=== PATIENT | female | born 1980 | race Hispanic/Latino ===

== ENCOUNTER 2017-01-08 15:09 | Emergency (ER) | payer MEDICAID ==
[2017-01-08 15:09] VITALS: BMI 31.8
[2017-01-08 15:17] VITALS: BP 140/86; PULSE 96; RESP 18; TEMP 99.5; O2SAT 99
--- NOTE | 2017-01-08 16:12 | ED PDOC ---
HPI: Dental Pain/Injury Time Seen by Provider: 01/08/17 15:19 Chief Complaint (Nursing): Dental Pain Chief Complaint (Provider): Dental pain History Per: Patient History/Exam Limitations: no limitations Onset/Duration Of Symptoms: Days (2) Current Symptoms Are (Timing): Still Present Additional Complaint(s): The patient is a 36yo female, presents to the ED for evaluation of atraumatic left upper dental pain, present for the past two days. Pt reports taking Motrin yesterday but reports no relief; contrary to triage note, pt denies taking any medications today. Of note, states she does take Tylenol #4 and Ultram for pain due to fibroids and arthritis as prescribed by Dr. Ny. Pt denies any fever, sore throat, numbness or tingling. Offers no additional medical complaints. Past Medical History Reviewed: Historical Data, Nursing Documentation, Vital Signs Vital Signs: Last Vital Signs Temp 99.5 F 01/08/17 15:15 Pulse 96 H 01/08/17 15:15 Resp 18 01/08/17 15:15 BP 140/86 01/08/17 15:15 Pulse Ox 99 01/08/17 15:15 - Medical History PMH: Anxiety, Arthritis, Asthma, Back Problems, Bipolar Disorder, Depression, Fibromyalgia, Migraine Denies: Chronic Kidney Disease - Surgical History Surgical History: - Family History Family History: States: No Known Family Hx - Home Medications Home Medications: Ambulatory Orders Medication Instructions Recorded Acetaminophen with Codeine 1 tab PO Q6 PRN 03/26/16 [Tylenol with Codeine No. 4 300 mg-60 mg] Clonazepam [Klonopin] 0.5 mg PO DAILY PRN 03/26/16 Gabapentin [Neurontin] 300 mg PO BID 03/26/16 Gabapentin [Neurontin] 600 mg PO HS 03/26/16 OLANZapine [ZyPREXA] 10 mg PO HS 03/26/16 SUMAtriptan [Imitrex] 50 mg PO DAILY 03/26/16 Topiramate [Topamax] 200 mg PO DAILY 03/26/16 Zolpidem [Ambien] 10 mg PO HS 03/26/16 Naproxen [Anaprox DS] 550 mg PO BID PRN #15 tab 01/08/17 - Allergies Allergies/Adverse Reactions: Allergies Allergy/AdvReac Type Severity Reaction Status Date / Time morphine Allergy RASH Verified 01/08/17 15:14 Review of Systems ROS Statement: Except As Marked, All Systems Reviewed And Found Negative Constitutional: Negative for: Fever ENT: Positive for: Other (left upper tooth ache). Negative for: Throat Pain, Throat Swelling Neurological: Negative for: Weakness, Numbness Physical Exam - Reviewed Nursing Documentation Reviewed: Yes Vital Signs Reviewed: Yes - Physical Exam Appears: Positive for: Well, Non-toxic, No Acute Distress Head Exam: Positive for: ATRAUMATIC, NORMAL INSPECTION, NORMOCEPHALIC Skin: Positive for: Normal Color, Warm, DRY Eye Exam: Positive for: Normal appearance, EOMI, PERRL ENT: Positive for: Normal ENT Inspection, Other (poor dentition, no gingival swelling noted.). Negative for: Tonsillar Exudate, Tonsillar Swelling Cardiovascular/Chest: Positive for: Regular Rate, Rhythm Respiratory: Negative for: Respiratory Distress Neurologic/Psych: Positive for: Alert, Oriented - ECG O2 Sat by Pulse Oximetry: 99 - Progress ED Course And Treament: Pt. searched in [facility] which indicates that pt. gets monthly Rx for Tylenol #4 and Ultram. Medical Decision Making Medical Decision Making: Time: 1521 Impression: Dental Pain Plan: -- Pt advised to follow up with dentist for further evaluation. -- Toradol 15 mg IM Scribe Attestation: Documented by Sarah Torres acting as a scribe for IDALMIS Way Provider Attestation: All medical record entries made by the Scribe were at my direction and personally dictated by me. I have reviewed the chart and agree that the record accurately reflects my personal performance of the history, physical exam, medical decision making, and the department course for this patient. I have also personally directed, reviewed, and agree with the discharge instructions and disposition. Disposition - Clinical Impression Clinical Impression: Toothache - Patient ED Disposition Is Patient to be Admitted: No - Disposition Referrals: [facility] [Outside] Disposition: Routine/Home Disposition Time: 17:30 Condition: STABLE Additional Instructions: Follow up with your dentist tomorrow for further evaluation. Prescriptions: Naproxen [Anaprox DS] 550 mg PO BID PRN #15 tab PRN Reason: pain Instructions: Toothache (ED) Print Language: SYRIAC
== END 2017-01-08 17:53 | disposition home or self-care (01) ==
LOC: H.ER 15:09
DX: K08.89 Other specified disorders of teeth and supporting structures (principal)

== ENCOUNTER 2017-01-13 14:23 | Emergency (ER) | payer MEDICAID ==
[2017-01-13 14:23] VITALS: BMI 31.8
[2017-01-13 14:43] VITALS: BP 107/64; PULSE 91; RESP 18; TEMP 98.4; O2SAT 100
--- NOTE | 2017-01-13 15:17 | ED PDOC ---
HPI: Back Time Seen by Provider: 01/13/17 14:49 Chief Complaint (Nursing): Back Pain Chief Complaint (Provider): Back pain History Per: Patient History/Exam Limitations: no limitations Onset/Duration Of Symptoms: Days (x2) Current Symptoms Are (Timing): Still Present Additional Complaint(s): Pj Mendez is a 36 year old female with previous medical history of sciatica , herniated disc, and titanium hip, who presents to the emergency department with a complaint of diffuse back pain associated with nausea, vomiting, chills, and radiation to her lower extremities ongoing for 2 days. Denies any fever, dysuria, hematuria, or bloody bowel movements. She reported taking Tramadol and a topical cream for pain but feels no improvements. PMD: Zaheer Aiken MD Past Medical History Reviewed: Historical Data, Nursing Documentation, Vital Signs Vital Signs: Last Vital Signs Temp 98.4 F 01/13/17 14:36 Pulse 91 H 01/13/17 14:36 Resp 18 01/13/17 14:36 BP 107/64 01/13/17 14:36 Pulse Ox 100 01/13/17 14:36 - Medical History PMH: Anxiety, Arthritis, Asthma, Back Problems, Bipolar Disorder, Depression, Fibromyalgia, Migraine Denies: Chronic Kidney Disease - Surgical History Surgical History: - Family History Family History: States: Unknown Family Hx - Home Medications Home Medications: Ambulatory Orders Medication Instructions Recorded Acetaminophen with Codeine 1 tab PO Q6 PRN 03/26/16 [Tylenol with Codeine No. 4 300 mg-60 mg] Clonazepam [Klonopin] 0.5 mg PO DAILY PRN 03/26/16 Gabapentin [Neurontin] 300 mg PO BID 03/26/16 Gabapentin [Neurontin] 600 mg PO HS 03/26/16 OLANZapine [ZyPREXA] 10 mg PO HS 03/26/16 SUMAtriptan [Imitrex] 50 mg PO DAILY 03/26/16 Topiramate [Topamax] 200 mg PO DAILY 03/26/16 Zolpidem [Ambien] 10 mg PO HS 03/26/16 Naproxen [Anaprox DS] 550 mg PO BID PRN #15 tab 01/08/17 Ketorolac Tromethamine [Toradol] 10 mg PO TID #20 cap 01/13/17 Nitrofurantoin Macrocrystals 100 mg PO BID #14 cap 01/13/17 [Macrobid] Non-Formulary 1 ea XX DAILY #1 ea 01/13/17 Tamsulosin HCl [Flomax] 0.4 mg PO DAILY #12 cap.er.24h 01/13/17 - Allergies Allergies/Adverse Reactions: Allergies Allergy/AdvReac Type Severity Reaction Status Date / Time morphine Allergy RASH Verified 01/08/17 15:14 Review of Systems ROS Statement: Except As Marked, All Systems Reviewed And Found Negative Constitutional: Positive for: Chills. Negative for: Fever Gastrointestinal: Positive for: Nausea, Vomiting Genitourinary Female: Negative for: Dysuria, Hematuria, Other (bloody bowel movements) Musculoskeletal: Positive for: Back Pain (diffused) Physical Exam - Reviewed Nursing Documentation Reviewed: Yes Vital Signs Reviewed: Yes - Physical Exam Appears: Positive for: Well, Non-toxic, Uncomfortable Head Exam: Positive for: ATRAUMATIC, NORMAL INSPECTION, NORMOCEPHALIC Cardiovascular/Chest: Positive for: Regular Rate, Rhythm Respiratory: Positive for: Normal Breath Sounds Gastrointestinal/Abdominal: Positive for: Tenderness (suprapubic) Back: Positive for: L CVA Tenderness, R CVA Tenderness, Vertebral Tenderness ( midline). Negative for: Normal Inspection Extremity: Positive for: Other (left straight leg raise). Negative for: Pedal Edema Neurologic/Psych: Positive for: Alert, county agent II-XII, Oriented - ECG O2 Sat by Pulse Oximetry: 100 (RA) Pulse Ox Interpretation: Normal Medical Decision Making Medical Decision Making: Initial Impression: Back pain, history of sciatica. R/O infection Initial Plan: * Urine dipstick * Urine * Toradol 30mg IM CT scan: IMPRESSION: 1. Small nonobstructing stones in the right kidney, the largest in the right lower pole measures 3 mm. No hydronephrosis. 2. 2.8 cm simple cyst in the right ovary. Pt declined IV fluids of NS. Pt will need to f.u with pmd will be d/c on flomax, torodol PO (pt sees pain mngt for chronic back pain) and abx(macrobid) stable VS pt well appearing. Scribe Attestation: Documented by Mandi Stewart, acting as a scribe for Kay Deluna PA-C. Provider Scribe Attestation: All medical record entries made by the Scribe were at my direction and personally dictated by me. I have reviewed the chart and agree that the record accurately reflects my personal performance of the history, physical exam, medical decision making, and the department course for this patient. I have also personally directed, reviewed, and agree with the discharge instructions and disposition. Disposition - Clinical Impression Clinical Impression: Renal stone - Patient ED Disposition Is Patient to be Admitted: No Counseled Patient/Family Regarding: Studies Performed, Diagnosis, Need For Followup, Rx Given - Disposition Disposition: Routine/Home Disposition Time: 16:55 Condition: STABLE Prescriptions: Ketorolac Tromethamine [Toradol] 10 mg PO TID #20 cap Nitrofurantoin Macrocrystals [Macrobid] 100 mg PO BID #14 cap Non-Formulary 1 ea XX DAILY #1 ea Tamsulosin HCl [Flomax] 0.4 mg PO DAILY #12 cap.er.24h Instructions: Kidney Stones (ED), Renal Colic (ED), How to Strain Your Urine ( ED)
--- NOTE | 2017-01-13 16:47 | CT ---
PROCEDURE: CT Abdomen and Pelvis without intravenous contrast HISTORY: CVA tenderness b/l COMPARISON: 03/26/2016 TECHNIQUE: CT scan of the abdomen and pelvis was performed without administration of oral contrast intravenous contrast was not administered. Coronal and sagittal reformatted images were obtained. Radiation dose: Total exam DLP = 815.53 mGy-cm. This CT exam was performed using one or more of the following dose reduction techniques: Automated exposure control, adjustment of the mA and/or kV according to patient size, and/or use of iterative reconstruction technique. FINDINGS: LOWER THORAX: The lung bases are clear. . LIVER: The liver is normal in size. No gross lesion or ductal dilatation. GALLBLADDER AND BILE DUCTS: The gallbladder is well distended without calcified gallstones. PANCREAS: There is redemonstration of mild fatty atrophy of the pancreas. No gross lesion or ductal dilatation. SPLEEN: There is borderline splenomegaly. ADRENALS: Both adrenal glands are normal in size without discrete nodule. KIDNEYS AND URETERS: Both kidneys are normal in size. There are small nonobstructing stones in the right kidney, the largest in the lower pole measures 3 mm. No hydronephrosis. No left nephrolithiasis. The ureters are not dilated. VASCULATURE: No aortic aneurysm. BOWEL: The small bowel loops are normal in caliber. The colon is unremarkable. APPENDIX: Normal appendix. PERITONEUM: No free fluid. No free air. LYMPH NODES: No enlarged lymph nodes. BLADDER: Unremarkable. REPRODUCTIVE: The uterus is normal in size. There is a 2.8 cm simple cyst in the right ovary. BONES: No acute fracture. Within normal limits for the patient's age. OTHER FINDINGS: None. IMPRESSION: 1. Small nonobstructing stones in the right kidney, the largest in the right lower pole measures 3 mm. No hydronephrosis. 2. 2.8 cm simple cyst in the right ovary.
== END 2017-01-13 17:10 | disposition home or self-care (01) ==
LOC: H.ER 14:23
DX: N20.0 Calculus of kidney (principal); F31.9 Bipolar disorder, unspecified; F41.9 Anxiety disorder, unspecified; M79.7 Fibromyalgia

== ENCOUNTER 2017-02-26 13:12 | Emergency (ER) | payer MEDICAID ==
[2017-02-26 13:12] VITALS: BMI 31.8
[2017-02-26 13:24] VITALS: RESP 18; TEMP 98.8; O2SAT 100
[2017-02-26] MEDS ORDERED: Oxycodone/Acetaminophen 5/325 mg Tab PO STA (13:42)
--- NOTE | 2017-02-26 13:51 | ED PDOC ---
HPI: Dental Pain/Injury Time Seen by Provider: 02/26/17 13:14 Chief Complaint (Nursing): Dental Pain Chief Complaint (Provider): Dental Pain History Per: Patient History/Exam Limitations: no limitations Onset/Duration Of Symptoms: Days (x1) Current Symptoms Are (Timing): Still Present Additional Complaint(s): Pj Kowalski is a 36 year old female who presents to the emergency department with a complaint of right upper molar pain ongoing for 24 hours. Denied any fever, chills, facial swelling or redness. Patient stated she took Tylenol last at 0600 this morning with no improvement of symptoms and does not follow up with a dentist regularly. PMD: Rafael Aiken MD Past Medical History Reviewed: Historical Data, Nursing Documentation, Vital Signs Vital Signs: Last Vital Signs Temp 98.8 F 02/26/17 13:22 Pulse 109 H 02/26/17 13:22 Resp 18 02/26/17 13:22 BP 145/93 H 02/26/17 13:22 Pulse Ox 100 02/26/17 13:22 - Medical History PMH: Anxiety, Arthritis, Asthma, Back Problems, Bipolar Disorder, Depression, Fibromyalgia, Migraine Denies: Chronic Kidney Disease - Surgical History Surgical History: - Family History Family History: States: Unknown Family Hx - Social History Current smoker - smoking cessation education provided: No Alcohol: None Drugs: Denies - Home Medications Home Medications: Ambulatory Orders Medication Instructions Recorded Acetaminophen with Codeine 1 tab PO Q6 PRN 03/26/16 [Tylenol with Codeine No. 4 300 mg-60 mg] Clonazepam [Klonopin] 0.5 mg PO DAILY PRN 03/26/16 Gabapentin [Neurontin] 300 mg PO BID 03/26/16 Gabapentin [Neurontin] 600 mg PO HS 03/26/16 OLANZapine [ZyPREXA] 10 mg PO HS 03/26/16 SUMAtriptan [Imitrex] 50 mg PO DAILY 03/26/16 Topiramate [Topamax] 200 mg PO DAILY 03/26/16 Zolpidem [Ambien] 10 mg PO HS 03/26/16 Naproxen [Anaprox DS] 550 mg PO BID PRN #15 tab 01/08/17 Ketorolac Tromethamine [Toradol] 10 mg PO TID #20 cap 01/13/17 Nitrofurantoin Macrocrystals 100 mg PO BID #14 cap 01/13/17 [Macrobid] Non-Formulary 1 ea XX DAILY #1 ea 01/13/17 Tamsulosin HCl [Flomax] 0.4 mg PO DAILY #12 cap.er.24h 01/13/17 traMADol [Ultram] 50 mg PO TID #15 tab 02/26/17 - Allergies Allergies/Adverse Reactions: Allergies Allergy/AdvReac Type Severity Reaction Status Date / Time acetaminophen Allergy RASH Verified 02/26/17 13:24 [From Tylenol-Codeine #3] codeine Allergy RASH Verified 02/26/17 13:24 [From Tylenol-Codeine #3] morphine Allergy RASH Verified 01/08/17 15:14 Review of Systems ROS Statement: Except As Marked, All Systems Reviewed And Found Negative Constitutional: Negative for: Fever, Chills ENT: Positive for: Mouth Pain (right upper molar). Negative for: Other (facial swelling or erythema) Physical Exam - Reviewed Nursing Documentation Reviewed: Yes Vital Signs Reviewed: Yes - Physical Exam Appears: Positive for: Well (with poor dentition; dental caries noted), Non- toxic, No Acute Distress Head Exam: Positive for: ATRAUMATIC, NORMAL INSPECTION, NORMOCEPHALIC Skin: Positive for: Normal Color ENT: Negative for: Other (edema/erythema to gum line) Neurologic/Psych: Positive for: Alert, Oriented - ECG O2 Sat by Pulse Oximetry: 100 Medical Decision Making Medical Decision Making: Medicated with Motrin PO, no relief on re-eval. Tramadol administered with good relief obtained provided with info for dental clinics Disposition - Clinical Impression Clinical Impression: Toothache - Patient ED Disposition Is Patient to be Admitted: No - Disposition Disposition: Routine/Home Disposition Time: 15:18 Condition: STABLE Additional Instructions: Follow up with dental clinic provided Prescriptions: traMADol [Ultram] 50 mg PO TID #15 tab Instructions: Toothache (ED) Forms: [employer] (Welsh)
[2017-02-26 15:25] VITALS: BP 137/79; PULSE 82
== END 2017-02-26 15:24 | disposition home or self-care (01) ==
LOC: H.ER 13:12
DX: K08.89 Other specified disorders of teeth and supporting structures (principal); F31.9 Bipolar disorder, unspecified; F41.9 Anxiety disorder, unspecified; J45.909 Unspecified asthma, uncomplicated; M79.7 Fibromyalgia

== ENCOUNTER 2017-03-11 19:33 | Emergency (ER) | payer OTHER, MEDICAID ==
[2017-03-11 19:33] VITALS: BMI 31.8
[2017-03-11 19:46] VITALS: BP 116/61; PULSE 84; RESP 16; TEMP 98.7; O2SAT 98
--- NOTE | 2017-03-11 20:04 | ED PDOC ---
Lower Extremity Pain/Injury Time Seen by Provider: 03/11/17 19:49 Chief Complaint (Nursing): Lower Extremity Problem/Injury Chief Complaint (Provider): Right Knee Injury History Per: Patient History/Exam Limitations: no limitations Onset/Duration Of Symptoms: Mins Current Symptoms Are (Timing): Still Present Additional Complaint(s): Pj Truong is a 36 year old female with a history of arthritis and a pre- existing right knee injury that presents to the ED with a chief complaint of a right knee injury she sustained after slipping and hitting her right knee into a cart while at work earlier today. Patient now reports pains with flexion at the knee and is unable to put weight on the knee. She denies any numbness, tingling, or radiation of pain. Past Medical History Reviewed: Historical Data, Nursing Documentation, Vital Signs Vital Signs: Last Vital Signs Temp 98.7 F 03/11/17 19:45 Pulse 84 03/11/17 19:45 Resp 16 03/11/17 19:45 BP 116/61 03/11/17 19:45 Pulse Ox 98 03/11/17 19:45 - Medical History PMH: Anxiety, Arthritis, Asthma, Back Problems, Bipolar Disorder, Depression, Fibromyalgia, Migraine Denies: Chronic Kidney Disease - Surgical History Surgical History: - Family History Family History: States: Unknown Family Hx - Home Medications Home Medications: Ambulatory Orders Medication Instructions Recorded Acetaminophen with Codeine 1 tab PO Q6 PRN 03/26/16 [Tylenol with Codeine No. 4 300 mg-60 mg] Clonazepam [Klonopin] 0.5 mg PO DAILY PRN 03/26/16 Gabapentin [Neurontin] 300 mg PO BID 03/26/16 Gabapentin [Neurontin] 600 mg PO HS 03/26/16 OLANZapine [ZyPREXA] 10 mg PO HS 03/26/16 SUMAtriptan [Imitrex] 50 mg PO DAILY 03/26/16 Topiramate [Topamax] 200 mg PO DAILY 03/26/16 Zolpidem [Ambien] 10 mg PO HS 03/26/16 Naproxen [Anaprox DS] 550 mg PO BID PRN #15 tab 01/08/17 Ketorolac Tromethamine [Toradol] 10 mg PO TID #20 cap 01/13/17 Nitrofurantoin Macrocrystals 100 mg PO BID #14 cap 01/13/17 [Macrobid] Non-Formulary 1 ea XX DAILY #1 ea 01/13/17 Tamsulosin HCl [Flomax] 0.4 mg PO DAILY #12 cap.er.24h 01/13/17 traMADol [Ultram] 50 mg PO TID #15 tab 02/26/17 - Allergies Allergies/Adverse Reactions: Allergies Allergy/AdvReac Type Severity Reaction Status Date / Time acetaminophen Allergy RASH Verified 02/26/17 13:24 [From Tylenol-Codeine #3] codeine Allergy RASH Verified 02/26/17 13:24 [From Tylenol-Codeine #3] morphine Allergy RASH Verified 01/08/17 15:14 Review of Systems Musculoskeletal: Positive for: Leg Pain (right knee pain) Physical Exam - Reviewed Nursing Documentation Reviewed: Yes Vital Signs Reviewed: Yes - Physical Exam Appears: Positive for: Non-toxic, No Acute Distress Head Exam: Positive for: ATRAUMATIC, NORMOCEPHALIC Skin: Positive for: Normal Color, Warm Eye Exam: Positive for: Normal appearance, EOMI, PERRL Pulses-Dorsalis Pedis (L): 2+ Pulses-Dorsalis Pedis (R): 2+ Pulses-Post. Tibialis (L): 2+ Pulses-Post. Tibialis (R): 2+ Extremity: Positive for: Tenderness (TTP anterior right knee), Swelling (Mild swelling posterior right knee), Other (Skin intact on right knee.). Negative for: Normal ROM (ROM right knee is difficult), Calf Tenderness Neurologic/Psych: Positive for: Alert, Oriented. Negative for: Motor/Sensory Deficits - ECG O2 Sat by Pulse Oximetry: 98 (RA) Pulse Ox Interpretation: Normal Medical Decision Making Medical Decision Making: Impression: Right Knee Injury Plan: * X-Ray Right Knee-knee normal appearing. will place in a knee immobilizer advise to f/u with orthopedics for eval. * motrin for pain control elevate and ice. * Reevaluation Scribe Attestation: Documented by Elyssa Bustamante, acting as a scribe for Kay Deluna PA-C. Provider Scribe Attestation: All medical record entries made by the Scribe were at my direction and personally dictated by me. I have reviewed the chart and agree that the record accurately reflects my personal performance of the history, physical exam, medical decision making, and the department course for this patient. I have also personally directed, reviewed, and agree with the discharge instructions and disposition. Disposition - Clinical Impression Clinical Impression: Knee injury - Patient ED Disposition Is Patient to be Admitted: No Counseled Patient/Family Regarding: Studies Performed, Diagnosis, Need For Followup - Disposition Referrals: [facility] [place] [Outside] Disposition: Routine/Home Disposition Time: 20:14 Condition: STABLE Instructions: Knee Immobilizer (ED), Swollen Knee Joint (ED) Forms: [facility] ED School/Work Excuse
--- NOTE | 2017-03-12 09:26 | RAD ---
PROCEDURE: Right Knee Radiographs. HISTORY: knee injury COMPARISON: None. FINDINGS: BONES: Normal. No fracture. JOINTS: Normal. No osteoarthritis. JOINT EFFUSION: None. OTHER FINDINGS: None. IMPRESSION: Unremarkable radiographs of the right knee.
== END 2017-03-11 21:05 | disposition home or self-care (01) ==
LOC: H.ER 19:33
DX: S89.91XA Unspecified injury of right lower leg, initial encounter (principal); W22.8XXA Striking against or struck by other objects, initial encounter; Y99.0 Civilian activity done for income or pay

== ENCOUNTER 2017-05-01 12:35 | Emergency (ER) | payer MEDICAID, OTHER ==
[2017-05-01 12:35] VITALS: BMI 31.8
[2017-05-01 12:39] VITALS: BP 135/80; TEMP 98.2; O2SAT 100
[2017-05-01] MEDS ORDERED: Albuterol-Ipratrop 3 mg / 0.5 (3 ml) UD INH STA (12:56)
--- NOTE | 2017-05-01 13:00 | ED PDOC ---
HPI: General Adult Time Seen by Provider: 05/01/17 12:45 Chief Complaint (Nursing): Shortness Of Breath Chief Complaint (Provider): Chest Tightness History Per: Patient History/Exam Limitations: no limitations Onset/Duration Of Symptoms: Days (x 2), Worse Since (earlier today) Current Symptoms Are (Timing): Still Present Additional Complaint(s): Pj is a 36 year old female with a past medical history of asthma, anxiety, depression, who presents to the Emergency Department complaining of chest tightness and difficulty breathing. Patient states she had an asthma attack yesterday at work, with worsening symptoms this morning. Patient states she used her inhaler as well as nebulizer at home, with some relief of her symptoms. Of note, patient states she uses her inhaler once a week on average. She denies any other medical complaints. PMD: Dr. Rafael Aiken Past Medical History Reviewed: Historical Data, Nursing Documentation, Vital Signs Vital Signs: Last Vital Signs Temp 98.2 F 05/01/17 12:37 Pulse 83 05/01/17 13:22 Resp 18 05/01/17 13:45 BP 135/80 05/01/17 12:37 Pulse Ox 100 05/01/17 13:22 - Medical History PMH: Anxiety, Arthritis, Asthma, Back Problems, Bipolar Disorder, Depression, Fibromyalgia, Migraine Denies: Diabetes, HTN, Hyperthyroidism, Hypothyroidism, Chronic Kidney Disease - Surgical History Surgical History: Other surgeries: left hip repalcement - Family History Family History: States: No Known Family Hx - Living Arrangements Living Arrangements: With Family - Social History Current smoker - smoking cessation education provided: No Ex-Smoker (has not smoked in the last 12 months): No Alcohol: None Drugs: Denies - Home Medications Home Medications: Ambulatory Orders Medication Instructions Recorded Acetaminophen with Codeine 1 tab PO Q6 PRN 03/26/16 [Tylenol with Codeine No. 4 300 mg-60 mg] Clonazepam [Klonopin] 0.5 mg PO DAILY PRN 03/26/16 Gabapentin [Neurontin] 300 mg PO BID 03/26/16 Gabapentin [Neurontin] 600 mg PO HS 03/26/16 OLANZapine [ZyPREXA] 10 mg PO HS 03/26/16 SUMAtriptan [Imitrex] 50 mg PO DAILY 03/26/16 Topiramate [Topamax] 200 mg PO DAILY 03/26/16 Zolpidem [Ambien] 10 mg PO HS 03/26/16 Naproxen [Anaprox DS] 550 mg PO BID PRN #15 tab 01/08/17 Ketorolac Tromethamine [Toradol] 10 mg PO TID #20 cap 01/13/17 Nitrofurantoin Macrocrystals 100 mg PO BID #14 cap 01/13/17 [Macrobid] Non-Formulary 1 ea XX DAILY #1 ea 01/13/17 Tamsulosin HCl [Flomax] 0.4 mg PO DAILY #12 cap.er.24h 01/13/17 traMADol [Ultram] 50 mg PO TID #15 tab 02/26/17 Albuterol 0.083% [Albuterol 0.083% 2.5 mg IH QID PRN #20 05/01/17 Inhal Soheila (2.5 mg/3 ml) UD] Albuterol HFA [Ventolin HFA 90 1 puff IH BID PRN #1 unit 05/01/17 mcg/actuation (8 g)] predniSONE [predniSONE Tab] 20 mg PO DAILY #12 tab 05/01/17 - Allergies Allergies/Adverse Reactions: Allergies Allergy/AdvReac Type Severity Reaction Status Date / Time acetaminophen Allergy RASH Verified 05/01/17 12:37 [From Tylenol-Codeine #3] codeine Allergy RASH Verified 05/01/17 12:37 [From Tylenol-Codeine #3] morphine Allergy RASH Verified 05/01/17 12:37 Review of Systems ROS Statement: Except As Marked, All Systems Reviewed And Found Negative Cardiovascular: Positive for: Other ("chest tightness") Respiratory: Positive for: Shortness of Breath (difficulty breathing) Physical Exam - Reviewed Nursing Documentation Reviewed: Yes Vital Signs Reviewed: Yes - Physical Exam Appears: Positive for: Well, Non-toxic, No Acute Distress Skin: Positive for: Normal Color Eye Exam: Positive for: Normal appearance ENT: Positive for: Normal ENT Inspection Neck: Positive for: Normal, Supple Cardiovascular/Chest: Positive for: Regular Rate, Rhythm. Negative for: Murmur Respiratory: Positive for: Normal Breath Sounds. Negative for: Wheezing, Respiratory Distress Neurologic/Psych: Positive for: Alert, Oriented - ECG ECG: Positive for: Interpreted By Me, Viewed By Me ECG Rhythm: Positive for: Normal QRS, Normal ST Segment, Sinus Rhythm Rate: 83 O2 Sat by Pulse Oximetry: 100 (RA) Pulse Ox Interpretation: Normal Medical Decision Making Medical Decision Making: Time: 12:56 Impression: 36yo female with shortness of breath and chest tightness Initial Plan: -- Duoneb 3 mg/05.mg (3ml) UD -- Solu-medrol 125 mg IM -- Xanax 0.25 mg PO --Peak Flow Pre/Post TX Pt reports feeling better on re-evaluation. No wheezing Scribe Attestation: Documented by David Gross, acting as a scribe for Kaelyn Salcedo PA-C Provider Scribe Attestation: All medical record entries made by the Scribe were at my direction and personally dictated by me. I have reviewed the chart and agree that the record accurately reflects my personal performance of the history, physical exam, medical decision making, and the department course for this patient. I have also personally directed, reviewed, and agree with the discharge instructions and disposition. Disposition - Clinical Impression Clinical Impression: Asthma exacerbation - Patient ED Disposition Is Patient to be Admitted: No Counseled Patient/Family Regarding: Diagnosis, Need For Followup, Rx Given - Disposition Referrals: [facility] [Outside] Disposition: Routine/Home Disposition Time: 13:49 Condition: GOOD Prescriptions: Albuterol 0.083% [Albuterol 0.083% Inhal Soheila (2.5 mg/3 ml) UD] 2.5 mg IH QID PRN #20 PRN Reason: Shortness Of Breath Albuterol HFA [Ventolin HFA 90 mcg/actuation (8 g)] 1 puff IH BID PRN #1 unit PRN Reason: Wheezing predniSONE [predniSONE Tab] 20 mg PO DAILY #12 tab Instructions: Asthma (ED) Forms: [facility] (S[place]i), [facility] ED School/Work Excuse
[2017-05-01] MEDS ORDERED: Albuterol-Ipratrop 3 mg / 0.5 (3 ml) UD ONE (13:17)
[2017-05-01 13:22] VITALS: PULSE 83
[2017-05-01 13:46] VITALS: RESP 18
== END 2017-05-01 15:21 | disposition home or self-care (01) ==
LOC: H.ER 12:35
DX: J45.901 Unspecified asthma with (acute) exacerbation (principal); F31.9 Bipolar disorder, unspecified; F41.9 Anxiety disorder, unspecified; M79.7 Fibromyalgia
CPT/HCPCS: 81025; 94640; 96372; 99282; J2930

== ENCOUNTER 2017-08-23 09:24 | Emergency (ER) | payer MEDICAID ==
[2017-08-23 09:31] VITALS: BMI 31.3
[2017-08-23 09:34] VITALS: BP 107/74; PULSE 90; RESP 20; TEMP 98.6; O2SAT 100
[2017-08-23] MEDS ORDERED: Sodium Chloride 0.9% 1,000 ML IV STA (10:10)
--- NOTE | 2017-08-23 10:13 | ED PDOC ---
HPI: General Adult Time Seen by Provider: 08/23/17 09:30 Chief Complaint (Nursing): Back Pain Chief Complaint (Provider): Vomiting, Flank Pain History Per: Patient History/Exam Limitations: no limitations Onset/Duration Of Symptoms: Hrs (x 6) Current Symptoms Are (Timing): Still Present Additional Complaint(s): Pj is a 37 y/o female who presents to the ED complaining of vomiting that started at 4:30am with associated flank pain and chills. Patient denies dysuria but states she has an increased frequency and urgency to urinate. Last episode of vomiting was at 8:30am. PMD: Rafael Aiken Past Medical History Reviewed: Historical Data, Nursing Documentation, Vital Signs Vital Signs: Last Vital Signs Temp 98.6 F 08/23/17 09:31 Pulse 90 08/23/17 09:31 Resp 20 08/23/17 09:31 BP 107/74 08/23/17 09:31 Pulse Ox 100 08/23/17 13:43 - Medical History PMH: Anxiety, Arthritis, Asthma, Back Problems, Bipolar Disorder, Depression, Fibromyalgia, Hyperlipidemia, Migraine Denies: Diabetes, HTN, Hyperthyroidism, Hypothyroidism, Chronic Kidney Disease - Surgical History Surgical History: - Family History Family History: States: Unknown Family Hx - Social History Current smoker - smoking cessation education provided: No Alcohol: None Drugs: Denies - Home Medications Home Medications: Ambulatory Orders Medication Instructions Recorded Acetaminophen with Codeine 1 tab PO Q6 PRN 03/26/16 [Tylenol with Codeine No. 4 300 mg-60 mg] Clonazepam [Klonopin] 0.5 mg PO DAILY PRN 03/26/16 Gabapentin [Neurontin] 300 mg PO BID 03/26/16 Gabapentin [Neurontin] 600 mg PO HS 03/26/16 OLANZapine [ZyPREXA] 10 mg PO HS 03/26/16 SUMAtriptan [Imitrex] 50 mg PO DAILY 03/26/16 Topiramate [Topamax] 200 mg PO DAILY 03/26/16 Zolpidem [Ambien] 10 mg PO HS 03/26/16 Naproxen [Anaprox DS] 550 mg PO BID PRN #15 tab 01/08/17 Ketorolac Tromethamine [Toradol] 10 mg PO TID #20 cap 01/13/17 Nitrofurantoin Macrocrystals 100 mg PO BID #14 cap 01/13/17 [Macrobid] Non-Formulary 1 ea XX DAILY #1 ea 01/13/17 Tamsulosin HCl [Flomax] 0.4 mg PO DAILY #12 cap.er.24h 01/13/17 traMADol [Ultram] 50 mg PO TID #15 tab 02/26/17 Albuterol 0.083% [Albuterol 0.083% 2.5 mg IH QID PRN #20 05/01/17 Inhal Soheila (2.5 mg/3 ml) UD] Albuterol HFA [Ventolin HFA 90 1 puff IH BID PRN #1 unit 05/01/17 mcg/actuation (8 g)] predniSONE [predniSONE Tab] 20 mg PO DAILY #12 tab 05/01/17 Nitrofurantoin Macrocrystals 100 mg PO BID #14 cap 08/23/17 [Macrobid] Tamsulosin [Flomax] 0.4 mg PO DAILY #14 cap 08/23/17 - Allergies Allergies/Adverse Reactions: Allergies Allergy/AdvReac Type Severity Reaction Status Date / Time acetaminophen Allergy RASH Verified 08/23/17 09:50 [From Tylenol-Codeine #3] codeine Allergy RASH Verified 08/23/17 09:50 [From Tylenol-Codeine #3] morphine Allergy RASH Verified 08/23/17 09:50 Review of Systems ROS Statement: Except As Marked, All Systems Reviewed And Found Negative Constitutional: Positive for: Chills Gastrointestinal: Positive for: Vomiting Genitourinary Female: Positive for: Frequency. Negative for: Dysuria Musculoskeletal: Positive for: Back Pain (flank) Physical Exam - Reviewed Nursing Documentation Reviewed: Yes Vital Signs Reviewed: Yes - Physical Exam Appears: Positive for: Well, No Acute Distress Head Exam: Positive for: ATRAUMATIC, NORMOCEPHALIC Skin: Positive for: Normal Color, Warm, Dry Eye Exam: Positive for: EOMI, Normal appearance, PERRL ENT: Positive for: Normal ENT Inspection Neck: Positive for: Normal, Painless ROM, Supple Cardiovascular/Chest: Positive for: Regular Rate, Rhythm. Negative for: Murmur Respiratory: Positive for: Normal Breath Sounds. Negative for: Respiratory Distress Gastrointestinal/Abdominal: Positive for: Normal Exam, Soft. Negative for: Tenderness Back: Positive for: Normal Inspection Extremity: Positive for: Normal ROM. Negative for: Pedal Edema, Deformity Neurologic/Psych: Positive for: Alert, Oriented. Negative for: Motor/Sensory Deficits - Laboratory Results Result Diagrams: 08/23/17 10:30 08/23/17 10:30 - ECG O2 Sat by Pulse Oximetry: 100 (RA) Pulse Ox Interpretation: Normal Medical Decision Making Medical Decision Making: Time: 10:05 Initial Impression:flank pain Rule out kidney stone, UTI Initial Plan: --Urine Dip --Urine --CT Abdomen & Pelvis w/o Contrast --CMP --CBC --Toradol --Zofran --Urine C&S --Urinalysis Urine : Negative CT Abdomen & Pelvis w/o Contrast: The 2 mostly midpole right renal nonobstructing calculi (largest measuring 3 mm ) are similar appearing. No interval left-sided urolithiasis. No gross bladder calculi. No hydronephrosis appreciated. No similar right ovarian 2.8 cm cyst. A smaller right ovarian cysts is now noted. Findings are compatible with physiologic changes. Time: 12:10 upon reeval of pt, she is sleeping comfortably in no distress. --Patient is aware of results and was instructed to follow up with outpatient urology. She is stable for discharge home. pt given referal for follow up. pt says she follows up with pain managment for narcotics. Scribe Attestation: Documented by Ethan Carranza, acting as a scribe for Claire Shah MD Provider Scribe Attestation: All medical record entries made by the Scribe were at my direction and personally dictated by me. I have reviewed the chart and agree that the record accurately reflects my personal performance of the history, physical exam, medical decision making, and the department course for this patient. I have also personally directed, reviewed, and agree with the discharge instructions and disposition. Disposition - Clinical Impression Clinical Impression: Back strain, Kidney stone - Patient ED Disposition Is Patient to be Admitted: No Counseled Patient/Family Regarding: Studies Performed, Diagnosis, Need For Followup - Disposition Referrals: [facility] [Outside] Kulwinder Duncan MD [Medical Doctor] - Disposition: Routine/Home Disposition Time: 10:30 Condition: IMPROVED Additional Instructions: follow up with urologist within one week return to the ED with any worsening or concerning symptoms Prescriptions: Nitrofurantoin Macrocrystals [Macrobid] 100 mg PO BID #14 cap Tamsulosin [Flomax] 0.4 mg PO DAILY #14 cap Instructions: Kidney Stones (DC) Forms: [facility] (E[place]ian), [facility] ED School/Work Excuse
[2017-08-23 10:52] LABS: SQUAMOUS EPITHIAL 6 /hpf (0-5); URINE BILIRUBIN SMALL (NEGATIVE); URINE BLOOD NEGATIVE (NEGATIVE); URINE CLARITY SLIGHTY-CLOUDY (Clear); URINE COLOR YELLOW (YELLOW); URINE GLUCOSE (UA) NEG (Normal); URINE LEUKOCYTE ESTERASE NEG Leu/uL (Negative); URINE NITRATE NEGATIVE (NEGATIVE); URINE PROTEIN 30 mg/dL (NEGATIVE); URINE UROBILINOGEN 0.2-1.0 mg/dL (0.2-1.0)
[2017-08-23 10:54] LABS: CALCIUM 9.3 mg/dL (8.4-10.2); GFR AFRICAN-AMERICAN > 60; GFR NON-AFRICAN AMERICAN > 60
[2017-08-23 10:55] LABS: BASO % 0.4 % (0.0-2.0); EOS % 0.3 % (0.0-4.0); HEMOGLOBIN 13.8 g/dL (12.0-16.0); LYMPH # 0.9 K/uL (1.0-4.3); LYMPH % 11.6 % (20.0-40.0); MEAN CELL VOLUME 88.3 fl (81.0-99.0); MEAN PLATELET VOLUME 7.6 fl (7.2-11.7); MONO # 0.2 K/uL (0.0-0.8); MONO % 3.2 % (0.0-10.0); NEUT # 6.5 K/uL (1.8-7.0); NEUT % 84.5 % (50.0-75.0); RBC 4.59 Mil/uL (3.80-5.20); RED CELL DISTRIBUTION WIDTH 12.8 % (11.5-14.5); WHITE BLOOD COUNT 7.6 K/uL (4.8-10.8)
[2017-08-23 10:56] LABS: ALB/GLOB RATIO 1.2 (1.0-2.1); ALBUMIN 4.3 g/dL (3.5-5.0); ALT/SGPT 18 U/L (9-52); AST/SGOT 32 U/L (14-36); BLOOD UREA NITROGEN 9 mg/dl (7-17)
--- NOTE | 2017-08-23 11:38 | CT ---
PROCEDURE: CT Abdomen and Pelvis without intravenous contrast HISTORY: abd pain COMPARISON: 07/16/2016 TECHNIQUE: Without contrast. Contrast Dose: None Radiation dose: Total exam DLP = 876 mGy-cm. This CT exam was performed using one or more of the following dose reduction techniques: Automated exposure control, adjustment of the mA and/or kV according to patient size, and/or use of iterative reconstruction technique. FINDINGS: LOWER THORAX: Unremarkable. LIVER: Unremarkable. No gross lesion or ductal dilatation. GALLBLADDER AND BILE DUCTS: Unremarkable. PANCREAS: Unremarkable. No gross lesion or ductal dilatation. SPLEEN: Unremarkable. ADRENALS: Unremarkable. No mass. KIDNEYS AND URETERS: Both kidneys are normal in size. There are small nonobstructing stones in the right kidney, the largest in the lower pole measures 3 mm. These are unchanged. No hydronephrosis. No left nephrolithiasis. The ureters are not dilated. VASCULATURE: Unremarkable. No aortic aneurysm. BOWEL: Unremarkable. No obstruction. No gross mural thickening. APPENDIX: Unremarkable. Normal appendix. PERITONEUM: Unremarkable. No free fluid. No free air. LYMPH NODES: Unremarkable. No enlarged lymph nodes. BLADDER: Unremarkable. REPRODUCTIVE: The prior right ovarian cyst appears smaller on the current exam. Uterus is unremarkable. BONES: Left hip prosthesis as before OTHER FINDINGS: None. IMPRESSION: The 2 mostly midpole right renal nonobstructing calculi (largest measuring 3 mm) are similar appearing. No interval left-sided urolithiasis. No gross bladder calculi. No hydronephrosis appreciated No similar right ovarian 2.8 cm cyst. A smaller right ovarian cysts is now noted. Findings are compatible with physiologic changes
[2017-08-23] MEDS ORDERED: Oxycodone/Acetaminophen 5/325 mg Tab PO ONE (11:44)
== END 2017-08-23 14:00 | disposition home or self-care (01) ==
LOC: H.ER 09:24
DX: N20.0 Calculus of kidney (principal); N83.201 Unspecified ovarian cyst, right side; E78.5 Hyperlipidemia, unspecified; F31.9 Bipolar disorder, unspecified; F41.9 Anxiety disorder, unspecified; J45.909 Unspecified asthma, uncomplicated; M79.7 Fibromyalgia
CPT/HCPCS: 74176; 80053; 81003; 81025; 85025; 87086; 87181; 96360; 99282; J1885; J2405; J7040

== ENCOUNTER 2018-01-25 14:25 | Emergency (ER) | payer MEDICAID ==
[2018-01-25 14:25] VITALS: BMI 31.3
[2018-01-25 14:41] VITALS: BP 109/70; PULSE 67; RESP 18; TEMP 98; O2SAT 97
--- NOTE | 2018-01-25 14:59 | ED PDOC ---
HPI: Female Pain Time Seen by Provider: 01/25/18 14:50 Chief Complaint (Nursing): Female Genitourinary Chief Complaint (Provider): Female Genitourinary History Per: Patient History/Exam Limitations: no limitations Onset/Duration Of Symptoms: Days (x2) Current Symptoms Are (Timing): Still Present Additional Complaint(s): 37 year old female with an extensive pmhx presents to the ED for evaluation of severe lower abdominal cramping associated with heavy vaginal bleeding - passing clots - onset two days. Patient reports she soaks through one pad every one to two hours and states she is also experiencing intermittent nausea, current lightheadedness, and a migraine headache which was not relieved by her last dose of imitrex yesterday, and has since ran out of it. She notes first calling her OB, who subsequently advised her to come to the ED. LNMP: 01/09, notes she is regular and there is no possibility of PMD: Rafael Aiken Past Medical History Reviewed: Historical Data, Nursing Documentation, Vital Signs Vital Signs: Last Vital Signs Temp 98.0 F 01/25/18 14:39 Pulse 67 01/25/18 14:39 Resp 18 01/25/18 14:39 BP 109/70 01/25/18 14:39 Pulse Ox 97 01/25/18 14:39 - Medical History PMH: Anxiety, Arthritis, Asthma, Back Problems, Bipolar Disorder, Depression, Fibromyalgia, Hyperlipidemia, Migraine Denies: Diabetes, HTN, Hyperthyroidism, Hypothyroidism, Chronic Kidney Disease - Surgical History Surgical History: - Family History Family History: States: Unknown Family Hx - Home Medications Home Medications: Ambulatory Orders Medication Instructions Recorded Acetaminophen with Codeine 1 tab PO Q6 PRN 03/26/16 [Tylenol with Codeine No. 4 300 mg-60 mg] Clonazepam [Klonopin] 0.5 mg PO DAILY PRN 03/26/16 Gabapentin [Neurontin] 300 mg PO BID 03/26/16 Gabapentin [Neurontin] 600 mg PO HS 03/26/16 OLANZapine [ZyPREXA] 10 mg PO HS 03/26/16 SUMAtriptan [Imitrex] 50 mg PO DAILY 03/26/16 Topiramate [Topamax] 200 mg PO DAILY 03/26/16 Zolpidem [Ambien] 10 mg PO HS 03/26/16 Naproxen [Anaprox DS] 550 mg PO BID PRN #15 tab 01/08/17 Ketorolac Tromethamine [Toradol] 10 mg PO TID #20 cap 01/13/17 Nitrofurantoin Macrocrystals 100 mg PO BID #14 cap 01/13/17 [Macrobid] Non-Formulary 1 ea XX DAILY #1 ea 01/13/17 Tamsulosin HCl [Flomax] 0.4 mg PO DAILY #12 cap.er.24h 01/13/17 traMADol [Ultram] 50 mg PO TID #15 tab 02/26/17 Albuterol 0.083% [Albuterol 0.083% 2.5 mg IH QID PRN #20 05/01/17 Inhal Soheila (2.5 mg/3 ml) UD] Albuterol HFA [Ventolin HFA 90 1 puff IH BID PRN #1 unit 05/01/17 mcg/actuation (8 g)] predniSONE [predniSONE Tab] 20 mg PO DAILY #12 tab 05/01/17 Nitrofurantoin Macrocrystals 100 mg PO BID #14 cap 08/23/17 [Macrobid] Tamsulosin [Flomax] 0.4 mg PO DAILY #14 cap 08/23/17 Cephalexin [cephalexin] 500 mg PO BID #10 cap 01/25/18 Sumatriptan Succinate [Imitrex] 50 mg PO Q1 #10 tablet 01/25/18 - Allergies Allergies/Adverse Reactions: Allergies Allergy/AdvReac Type Severity Reaction Status Date / Time acetaminophen Allergy RASH Verified 08/23/17 09:50 [From Tylenol-Codeine #3] codeine Allergy RASH Verified 08/23/17 09:50 [From Tylenol-Codeine #3] morphine Allergy RASH Verified 08/23/17 09:50 Review of Systems ROS Statement: Except As Marked, All Systems Reviewed And Found Negative Cardiovascular: Positive for: Light Headedness Gastrointestinal: Positive for: Nausea (intermittent), Abdominal Pain (severe cramping, lower) Genitourinary Female: Positive for: Vaginal Bleeding (heavy, passing clots) Neurological: Positive for: Headache (migraine) Physical Exam - Reviewed Nursing Documentation Reviewed: Yes Vital Signs Reviewed: Yes - Physical Exam Appears: Positive for: No Acute Distress Head Exam: Positive for: ATRAUMATIC, NORMOCEPHALIC Skin: Positive for: Normal Color, Warm, Dry Eye Exam: Positive for: Normal appearance Cardiovascular/Chest: Positive for: Regular Rate, Rhythm. Negative for: Murmur Respiratory: Positive for: Normal Breath Sounds. Negative for: Accessory Muscle Use, Respiratory Distress Gastrointestinal/Abdominal: Positive for: Soft, Tenderness (mild suprapubic) Back: Positive for: Normal Inspection Extremity: Positive for: Normal ROM Neurologic/Psych: Positive for: Alert, Oriented (x3). Negative for: Motor/ Sensory Deficits - Laboratory Results Result Diagrams: 01/25/18 15:50 01/25/18 15:50 - ECG O2 Sat by Pulse Oximetry: 97 (RA) Pulse Ox Interpretation: Normal Medical Decision Making Medical Decision Making: Time: 15:06 Initial Impression: menometrorrhagia, migraine Initial Plan: --ABO/RH type --Type and screen --Beta-HCG --CMP --Urine preg --CBC with differential --Normal saline IV --Reglan 10 mg IVP --Toradol 30 mg IVP --Urinalysis --Transvag US 16:44 Transvag US FINDINGS: UTERUS: Measures 4.3 x 4.9 x 9.4 cm. Normal in size and appearance. No fibroid or other mass lesion seen. ENDOMETRIUM: Measures 9.3 mm in diameter. No ultrasound findings to suggest gestational sac, fluid, debris, mass or polyp or other pathologic process within the endometrium. CERVIX: No cervical abnormality identified. RIGHT OVARY: Measures 1.4 x 1.7 x 2.3 cm. No solid mass. Normal flow. Multiple subcentimeter follicles. LEFT OVARY: Not visible. FREE FLUID: No significant free fluid noted. OTHER FINDINGS: None. IMPRESSION: Unremarkable pelvic ultrasound. Limitations of the current examination: None visualize left adnexa. No significant interval change compared to the prior examination(s). Scribe Attestation: Documented by Trisha Pedraza, acting as a scribe for Leigh Ann Peoples PA-C. Provider Scribe Attestation: All medical record entries made by the Scribe were at my direction and personally dictated by me. I have reviewed the chart and agree that the record accurately reflects my personal performance of the history, physical exam, medical decision making, and the department course for this patient. I have also personally directed, reviewed, and agree with the discharge instructions and disposition. Disposition - Clinical Impression Clinical Impression: Menometrorrhagia, Migraine, Urinary tract infection - Patient ED Disposition Is Patient to be Admitted: No - Disposition Disposition: Routine/Home Disposition Time: 18:13 Condition: STABLE Prescriptions: Cephalexin [cephalexin] 500 mg PO BID #10 cap Sumatriptan Succinate [Imitrex] 50 mg PO Q1 #10 tablet Instructions: Heavy Periods, Migraine Headaches in Adults, Urinary Tract Infection, Adult (DC) Forms: [facility] (Thai), [facility] ED School/Work Excuse
[2018-01-25] MEDS ORDERED: Sodium Chloride 0.9% 1,000 ML IV STA (15:06)
[2018-01-25 16:03] LABS: BASO % 0.4 % (0.0-2.0); EOS % 0.5 % (0.0-4.0); HEMOGLOBIN 12.5 g/dL (12.0-16.0); LYMPH % 15.1 % (20.0-40.0); MEAN CORPUSCULAR HEMOGLOBIN 29.7 pg (27.0-31.0); MEAN CORPUSCULAR HGB CONC 33.4 g/dL (33.0-37.0); MEAN PLATELET VOLUME 7.6 fl (7.2-11.7); MONO # 0.5 K/uL (0.0-0.8); MONO % 7.6 % (0.0-10.0); NEUT # 5.2 K/uL (1.8-7.0); NEUT % 76.4 % (50.0-75.0); NRBC % 0.1 % (0.0-0.0); RBC 4.2 Mil/uL (3.80-5.20); RED CELL DISTRIBUTION WIDTH 13.1 % (11.5-14.5); WHITE BLOOD COUNT 6.8 K/uL (4.8-10.8)
[2018-01-25 16:07] LABS: ALB/GLOB RATIO 1.3 (1.0-2.1); ALT/SGPT 28 U/L (9-52); AST/SGOT 26 U/L (14-36); BLOOD UREA NITROGEN 9 mg/dl (7-17); GFR NON-AFRICAN AMERICAN > 60
[2018-01-25 16:16] LABS: SQUAMOUS EPITHIAL 3 /hpf (0-5); URINE AMORPHOUS SEDIMENT RARE /ul (<OCC); URINE BACTERIA MANY (<OCC); URINE BILIRUBIN NEGATIVE (NEGATIVE); URINE BLOOD MODERATE (NEGATIVE); URINE CLARITY TURBID (Clear); URINE COLOR YELLOW (YELLOW); URINE GLUCOSE (UA) NEG (Normal); URINE LEUKOCYTE ESTERASE NEG Leu/uL (Negative); URINE PROTEIN 100 mg/dL (NEGATIVE); WBC CLUMPS FEW /hpf
--- NOTE | 2018-01-25 16:46 | US ---
Date of service: 01/25/2018 HISTORY: Menorrhagia. History of fibroids. LMP January 24, 2018. COMPARISON: 10/31/2017. Pelvic ultrasound TECHNIQUE: Transvaginal only. Real -time technique with 2D, duplex and color Doppler FINDINGS: UTERUS: Measures 4.3 x 4.9 x 9.4 cm. Normal in size and appearance. No fibroid or other mass lesion seen. ENDOMETRIUM: Measures 9.3 mm in diameter. No ultrasound findings to suggest gestational sac, fluid, debris, mass or polyp or other pathologic process within the endometrium. CERVIX: No cervical abnormality identified. RIGHT OVARY: Measures 1.4 x 1.7 x 2.3 cm. No solid mass. Normal flow. Multiple subcentimeter follicles. LEFT OVARY: Not visible. FREE FLUID: No significant free fluid noted. OTHER FINDINGS: None. IMPRESSION: Unremarkable pelvic ultrasound. Limitations of the current examination: None visualize left adnexa. No significant interval change compared to the prior examination(s).
[2018-01-25] MEDS ORDERED: DiphenhydrAMINE 50 mg/ml Inj IVP STA (17:17)
[2018-01-25] MEDS ORDERED: cefTRIAXone (Rocephin) 1 gm Inj ONE (17:18)
[2018-01-25] MEDS ORDERED: DiphenhydrAMINE 50 mg/ml Inj ONE (18:29)
== END 2018-01-25 19:12 | disposition home or self-care (01) ==
LOC: H.ER 14:25
DX: N92.1 Excessive and frequent menstruation with irregular cycle (principal); G43.909 Migraine, unspecified, not intractable, without status migrainosus; N39.0 Urinary tract infection, site not specified; E78.5 Hyperlipidemia, unspecified; F31.9 Bipolar disorder, unspecified; F41.9 Anxiety disorder, unspecified; M79.7 Fibromyalgia
CPT/HCPCS: 76830; 80053; 81003; 81025; 84702; 85025; 86850; 86900; 96374; 96375; 99283; J0696; J1200; J1885; J2270; J2765; J7030